=== PATIENT | female | born 1940 | race Caucasian/White ===

== ENCOUNTER → 2020-02-23 | Outpatient (CLI) | payer MEDICARE ==
[~2020-02-23] MED LIST: AMOX875T2 PO; BACL10TA2 PO; COPA20IN SC; GLIP1TAB11 PO; HYDR-3713 PO; HYDR25TAB PO; LANTINJ4 SC; POTA1TAB14 PO
== END ==
LOC: M LABSMTC 08:56 → EDUNIT# 09:05
PROVIDERS: ATTEND Anesthesiology
DX: Z03.818 Encounter for observation for suspected exposure to other biological agents ruled out (principal)
CPT/HCPCS: C9803; U0003

== ENCOUNTER 2020-02-26 07:09 | Day surgery (SDC) | payer MEDICARE ==
[~2020-02-26] VITALS: Ht 162.6 cm; Wt 98.4 kg
[~2020-02-26 07:09] MED LIST changes: -HYDR-3713 PO; +LIDOCAINE 1% MDV 20ML VIAL SQ PRN; +LR 1,000 ML IV ONE; +ceFAZolin SOD 2 GM in IV 1 EA IV ONE
[2020-02-26] MEDS ORDERED: propofoL 500 MG/50 ML VIAL As Ordered ONE (08:27)
[2020-02-26] MEDS ORDERED: ONDANSETRON 4MG/2ML VIAL As Ordered ONE (08:28)
[2020-02-26] MEDS ORDERED: fentaNYL 100 MCG/2 ML INJECTION (J3010) As Ordered ONE (08:28)
[2020-02-26] MEDS ORDERED: LIDOCAINE 2% 100MG/5ML SDV (FOR ANES.) As Ordered ONE (08:28)
[2020-02-26] MEDS ORDERED: BUPIVACAINE HCL 0.5% 10ML VIAL As Ordered ONE (09:50)
[2020-02-26] MEDS ORDERED: LIDOCAINE 1% MDV 20ML VIAL As Ordered ONE (09:50)
[2020-02-26] MEDS ORDERED: HYDR-3713 PO (10:42)
[2020-02-26 11:22] VITALS: BP 133/63
--- NOTE | 2020-03-01 13:14 | RO ---
DATE OF PROCEDURE: 02/26/2020 PREPROCEDURE DIAGNOSIS: Left foot ulceration and osteomyelitis. POSTPROCEDURE DIAGNOSIS: Left foot ulceration and osteomyelitis. PROCEDURE: Left 5th metatarsal head excision. SURGEON: Ray Person DPM TACTICAL/MOBILE WATCH OFFICER: None. ANESTHESIA: Monitored anesthesia care with preoperative injection of 10 mL of a 1:1 mixture of 1% lidocaine plain and 0.50% Marcaine plain. ESTIMATED BLOOD LOSS: Minimal. SPECIMENS: Left 5th metatarsal head. MATERIALS: #3-0 nylon. INJECTABLES: None. COMPLICATIONS: None. CONDITION: Stable. Lidia Vilchis is a 79-year-old female who presents to [facility] with complaints of ulceration and osteomyelitis of her 5th metatarsal bone. She presents today for surgical correction. The patient's side and site were identified and marked in the preoperative holding area. Consent was reviewed and obtained. The risks, complications, and alternatives to the procedure were explained to the patient in detail, and all questions were answered. DESCRIPTION OF PROCEDURE: The patient was brought to the operating room, placed on the operating room table in supine position, monitored anesthesia care was delivered by the anesthesia team. Preoperative injection of 10 mL of a 1:1 mixture of 1% lidocaine plain and 0.50% Marcaine plain were injected into the left foot. The left foot was prepped and draped in a normal sterile fashion. No tourniquet was applied during the procedure. A linear incision was made over the 5th metatarsal head, full thickness. The joint was accessed, and the metatarsal bone was exposed. Soft tissue was freed using McGlamry elevator, and the metatarsal head was excised using a sagittal saw. The site was irrigated with normal saline, and the wound closed with #3-0 nylon. Sterile dressings were applied. The patient was brought to the post-anesthesia care unit (PACU) with vital signs stable, neurovascular status intact. She will be weightbearing as tolerated. She will followup in the office in 2 days.
== END 2020-02-26 11:30 | disposition home or self-care (01) ==
LOC: M SDC 07:09
PROVIDERS: ATTEND Podiatrist Foot & Ankle Surgery
DX: E10.621 Type 1 diabetes mellitus with foot ulcer (principal); L97.528 Non-pressure chronic ulcer of other part of left foot with other specified severity; L89.894 Pressure ulcer of other site, stage 4; I10 Essential (primary) hypertension; G35 Multiple sclerosis; Z79.4 Long term (current) use of insulin; Z79.899 Other long term (current) drug therapy; Z91.040 Latex allergy status; Z88.5 Allergy status to narcotic agent
CPT/HCPCS: 28122; 88305; 88311; J0690; J2405; J3010